=== PATIENT | female | born 1935 | race Caucasian/White ===

== ENCOUNTER 2016-06-22 05:06 | Day surgery (SDC) | payer OTHER ==
[~2016-06-22] VITALS: Ht 162.6 cm; Wt 82.0 kg
[~2016-06-22 05:06] MED LIST: AREDS PO; ASPIRIN81 M2 PO; CALCIUM + D3 E1 EACH PO; FENOFIBRATE160 M1; GLUCOSAMINE &1 EACH PO; GLUCOSAMINE CHONDROI PO; IBUPROFEN600 MG PO; PRESERVISION T1 EACH PO; TYLENOL REGULA325 MG PO; VITAMIN D31000 UNIT PO; VITAMIN D400 UNIT PO; WELCHOL3.75 GM; vitamin c PO
[2016-06-22 05:51] VITALS: BP 138/63
[2016-06-22 11:16] VITALS: BP 134/64
[2016-06-22 12:15] VITALS: BP 119/74
== END 2016-06-22 12:18 | disposition home or self-care (01) ==
LOC: SDC 05:06
PROC: 0HBU0ZZ Excision of Left Breast, Open Approach (ICD-10-PCS; principal; 2016-06-22)
DX: D05.12 Intraductal carcinoma in situ of left breast (principal); E78.5 Hyperlipidemia, unspecified; H35.30 Unspecified macular degeneration; G25.81 Restless legs syndrome; Z80.3 Family history of malignant neoplasm of breast; Z80.0 Family history of malignant neoplasm of digestive organs; Z82.3 Family history of stroke; Z82.49 Family history of ischemic heart disease and other diseases of the circulatory system; Z81.8 Family history of other mental and behavioral disorders; Z80.8 Family history of malignant neoplasm of other organs or systems; Z83.49 Family history of other endocrine, nutritional and metabolic diseases; Z83.3 Family history of diabetes mellitus; Z79.82 Long term (current) use of aspirin; Z88.8 Allergy status to other drugs, medicaments and biological substances
CPT/HCPCS: 88305; 88307; J0690; J2405; J3010; S0020

== ENCOUNTER 2016-09-29 07:04 | Emergency (ER) | payer OTHER ==
[~2016-09-29] VITALS: Ht 162.6 cm; Wt 85.7 kg
[2016-09-29] MEDS ORDERED: PERCOCET 5/31 TABLET PO (08:26)
[2016-09-29] MEDS ORDERED: MOTRIN800 MG PO (08:26)
[2016-09-29 08:29] VITALS: BP 119/64
== END 2016-09-29 08:59 | disposition home or self-care (01) ==
LOC: EME 07:04
DX: M25.511 Pain in right shoulder (principal); M79.601 Pain in right arm; Z79.82 Long term (current) use of aspirin
CPT/HCPCS: 73030; 99281; 99283

== ENCOUNTER 2017-01-31 12:01 | Emergency (ER) | payer OTHER ==
[~2017-01-31] VITALS: Ht 162.6 cm; Wt 94.4 kg
[~2017-01-31 12:01] MED LIST changes: +MOTRIN800 MG PO; +PERCOCET 5/31 TABLET PO
[2017-01-31 12:41] LABS: EOSINOPHIL (%) 0.8 % (0-5); EOSINOPHIL COUNT 0.1 K/uL (0-0.3); HEMATOCRIT 45.8 % (36.0-46.0); IMMATURE GRANULOCYTE (%) 0.5 % (0.0-0.7); INSTRUMENT ABS NEUTROPHIL CT 3.7 K/uL; LYMPHOCYTE COUNT 2.1 K/uL (1.0-2.8); MCH 32.2 PG (29.0-34.0); MCHC 34.5 G/DL (30.0-36.0); MCV 93.5 FL (83-99); MEAN PLAT.VOLUME 11.5 uM^3 (9.5-12.4); MONOCYTE COUNT 0.4 K/uL (0-0.8); NEUTROPHIL (%) 58.3 % (45-76); NEUTROPHIL COUNT 3.7 K/uL (1.8-6.4); PLATELET COUNT 193 K/uL (156-360); RBC DIS.WIDTH-CV 13.2 % (11.8-14.6); RBC DIS.WIDTH-SD 45.6 % (39-53); WHITE BLOOD COUNT 6.3 K/uL (4.1-10.2)
[2017-01-31 12:47] LABS: PROTHROMBIN TIME 11.4 SEC (10.2-12.9)
[2017-01-31 12:49] LABS: CHLORIDE 104 mEq/L (99-109); POTASSIUM 4.5 mEq/L (3.7-5.4); PTT 32.8 SEC (25-37); SODIUM 140 mEq/L (136-147)
[2017-01-31 12:51] LABS: GLUCOSE 96 mg/dL (70-99)
[2017-01-31 12:52] LABS: ANION GAP 11 MEQ/L (2-14)
[2017-01-31 12:55] LABS: GFR ESTIMATE (CALCULATED) > 59 mL/min/
[2017-01-31 12:56] LABS: UREA NITROGEN (BUN) 15 mg/dL (9-23)
[2017-01-31 15:50] VITALS: BP 142/69
== END 2017-01-31 15:51 | disposition home or self-care (01) ==
LOC: EME 12:01
PROVIDERS: Emergency Medicine
DX: R25.2 Cramp and spasm (principal); M79.661 Pain in right lower leg; E78.5 Hyperlipidemia, unspecified; F32.9 Major depressive disorder, single episode, unspecified; Z79.82 Long term (current) use of aspirin
CPT/HCPCS: 80048; 85025; 85610; 85730; 93971; 99281; 99284